=== PATIENT | female | born 1945 | race Caucasian/White ===

== ENCOUNTER → 2016-09-03 | Outpatient (CLI) | payer MEDICARE, OTHER ==
[~2016-09-03] MED LIST: ASPIRIN 81M81 MG/TA2 PO; CALCIUM CITRAT200 MG PO; CENTRUM1 TAB PO; CLARITIN10 MG PO; CRESTOR20 MG PO; EVISTA60 MG PO; FISH OIL CONC1000 MG PO; FLONASE0.05 MG/AC NS; GOOD NEIGHBOR325 MG PO; LEVOXYL0.05 MG PO; TOPROL XL 25MG25 MG PO; TOPROL XL50 MG PO
== END ==
LOC: MC.RAD 13:19
DX: Z12.31 Encounter for screening mammogram for malignant neoplasm of breast (principal)

== ENCOUNTER → 2016-10-14 | Outpatient (CLI) | payer MEDICARE, OTHER | LOC: COL.RAD 08:15 | DX: N28.9 Disorder of kidney and ureter, unspecified (principal) | CPT/HCPCS: Q9967 ==

== ENCOUNTER → 2017-09-28 | Outpatient (CLI) | payer MEDICARE, OTHER | LOC: MC.RAD 07:44 | DX: Z12.31 Encounter for screening mammogram for malignant neoplasm of breast (principal) ==

== ENCOUNTER → 2018-11-17 | Outpatient (CLI) | payer MEDICARE, OTHER | LOC: MC.RAD 10:55 | DX: Z12.31 Encounter for screening mammogram for malignant neoplasm of breast (principal) ==

== ENCOUNTER → 2021-01-30 | Outpatient (CLI) | payer MEDICARE, OTHER | LOC: MC.RAD 07:20 | DX: Z12.31 Encounter for screening mammogram for malignant neoplasm of breast (principal) ==

== ENCOUNTER → 2021-04-14 | Outpatient (CLI) | payer MEDICARE, OTHER | LOC: COL.RAD 12:13 | DX: S62.144D Nondisplaced fracture of body of hamate [unciform] bone, right wrist, subsequent encounter for fracture with routine healing (principal); M19.031 Primary osteoarthritis, right wrist | CPT/HCPCS: J3301 ==

== ENCOUNTER → 2023-09-13 | Outpatient (CLI) | payer MEDICARE, OTHER | LOC: COL.RAD 12:35 | DX: R41.3 Other amnesia (principal) ==